=== PATIENT | male | born 1995 | race Asian ===

== ENCOUNTER 2021-03-21 18:44 | Emergency (ER) | payer BC ==
[2021-03-21 18:58] VITALS: BP 149/99; TEMP 98.9; BMI 32.1
[2021-03-21] MEDS ORDERED: ONDANSETRON 4 MG/2 ML VIAL IVPB ONE (19:10)
[2021-03-21] MEDS ORDERED: SODIUM CHLORIDE 1,000 ML ONE (19:10)
[2021-03-21] MEDS ORDERED: LOPERAMIDE HCL 2 MG CAPSULE PO ONE (19:12)
[2021-03-21 19:38] LABS: ALBUMIN 4.5 g/dl (3.4-5.0); BILIRUBIN,TOTAL 1.1 mg/dl (0.2-1); CALCIUM 8.6 mg/dl (8.5-10); CREATININE 0.9 mg/dl (0.55-1.3); TOT PROT 8.5 g/dl (6.4-8.2)
[2021-03-21 20:16] VITALS: PULSE 87
[2021-03-21 21:18] LABS: BASO % 0.2 % (0-2.0); EOS % 0.8 % (0-4.5); HEMATOCRIT 47.1 % (35.4-49); HEMOGLOBIN 15.8 GM/dL (11.7-16.9); LYMPH % 19.8 % (8-40); MCH 28.1 pg (25.7-33.7); MCHC 33.6 g/dl (32.0-35.9); MEAN CELL VOLUME 83.6 fl (80-96); MEAN PLT VOLUME 7.5 fl (7.5-11.1); MONO % 11.5 % (3.8-10.2); NEUT % 67.7 % (42.8-82.8); PLATELET COUNT 264 10^3/uL (134-434); RBC 5.63 M/mm3 (4.00-5.60); RDW 13.1 % (11.9-15.9); WHITE BLOOD COUNT 7.2 K/mm3 (4.0-10.0)
[2021-03-22 15:11] LABS: SARS-CoV-2 NAA Not Detected (Not Detected)
== END 2021-03-21 21:29 | disposition home or self-care (01) ==
LOC: FER 18:44
PROC: 3E033GC Introduction of Other Therapeutic Substance into Peripheral Vein, Percutaneous Approach (ICD-10-PCS; principal; 2021-03-21)
PROC: 3E0337Z Introduction of Electrolytic and Water Balance Substance into Peripheral Vein, Percutaneous Approach (ICD-10-PCS; 2021-03-21)
DX: R11.2 Nausea with vomiting, unspecified (principal); R19.7 Diarrhea, unspecified
CPT/HCPCS: 36415; 80053; 85025; 99284-25; C9803; U0003; U0005